=== PATIENT | female | born 1965 | race Caucasian/White ===

== ENCOUNTER 2021-08-15 14:39 | Emergency (ER) | payer OTHER ==
[2021-08-15] MEDS ORDERED: NORCO 5-325 TA1 EACH PO (16:29)
== END 2021-08-15 17:10 | disposition home or self-care (01) ==
LOC: FER 14:39
DX: S82.51XA Displaced fracture of medial malleolus of right tibia, initial encounter for closed fracture (principal); S82.891A Other fracture of right lower leg, initial encounter for closed fracture; V69.9XXA Occupant (driver) (passenger) of heavy transport vehicle injured in unspecified traffic accident, initial encounter
CPT/HCPCS: 73610